=== PATIENT | female | born 1950 | race American Indian/Alaskan Native ===

== ENCOUNTER 2021-10-01 10:16 | Emergency (ER) | payer SELFPAY ==
--- NOTE | 2021-10-01 13:05 | Emergency Department Report ---
ED General Adult HPI - General Chief complaint: Dyspnea/Respdistress Stated complaint: COUGH Time Seen by Provider: 10/01/21 12:58 Source: patient Mode of arrival: Ambulatory Limitations: No Limitations - History of Present Illness Initial comments: Patient is 70 years old female with history of hypertension. Patient presented to the ER complaining of cough for 2-1/2month. Patient stated that cough is productive with frothy sputum. She denied any chest pain or shortness of breath. Patient denied any orthopnea. Patient stated that she was treated with amoxicillin and Mucinex with no improvement. Patient denied any fever or chills. No nausea or vomiting. - Related Data Allergies Allergy/AdvReac Type Severity Reaction Status Date / Time No Known Allergies Allergy Unverified 10/01/21 10:30 ED Review of Systems ROS: Stated complaint: COUGH Other details as noted in HPI Comment: All other systems reviewed and negative Constitutional: denies: chills, fever Respiratory: cough. denies: orthopnea, shortness of breath, SOB with exertion, SOB at rest, stridor, wheezing Cardiovascular: denies: chest pain, palpitations, dyspnea on exertion, orthopnea, paroxysmal nocturnal dyspnea Gastrointestinal: denies: abdominal pain, nausea, vomiting, diarrhea, constipation, hematemesis, melena, hematochezia Genitourinary: denies: urgency Musculoskeletal: denies: back pain Neurological: denies: headache, weakness, numbness, paresthesias, confusion ED Physical Exam - General Limitations: No Limitations General appearance: alert, in no apparent distress - Head Head exam: Present: atraumatic, normocephalic, normal inspection - Eye Eye exam: Present: normal appearance, PERRL - ENT ENT exam: Present: normal exam, normal orophraynx, mucous membranes moist - Neck Neck exam: Present: normal inspection, full ROM. Absent: tenderness, meningismus - Respiratory Respiratory exam: Present: normal lung sounds bilaterally - Cardiovascular Cardiovascular Exam: Present: regular rate, normal rhythm, normal heart sounds - GI/Abdominal GI/Abdominal exam: Present: soft, normal bowel sounds. Absent: distended, tenderness, guarding, rebound, rigid, organomegaly, mass, bruit, pulsatile mass, hernia - Extremities Exam Extremities exam: Present: normal inspection, full ROM, normal capillary refill. Absent: tenderness - Back Exam Back exam: Present: normal inspection, full ROM. Absent: CVA tenderness (R), CVA tenderness (L) - Neurological Exam Neurological exam: Present: alert, oriented X3, CN II-XII intact - Psychiatric Psychiatric exam: Present: normal mood - Skin Skin exam: Present: warm, intact, normal color ED Course Vital Signs 10/01/21 10:27 Temperature 98.8 F Pulse Rate 102 H Respiratory 18 Rate Blood Pressure 166/71 [Right] O2 Sat by Pulse 100 Oximetry ED Medical Decision Making - Lab Data Result diagrams: 10/01/21 14:24 - Radiology Data Radiology results: report reviewed - Medical Decision Making Patient is 70 years old female with history of hypertension. Patient presented to the ER complaining of cough for 2-1/2month. Patient stated that cough is productive with frothy sputum. She denied any chest pain or shortness of breath. Patient denied any orthopnea. Patient stated that she was treated with amoxicillin and Mucinex with no improvement. Patient denied any fever or chills. No nausea or vomiting. Critical care attestation.: If time is entered above; I have spent that time in minutes in the direct care of this critically ill patient, excluding procedure time. ED Disposition Clinical Impression: Cough Disposition: 01 HOME / SELF CARE / HOMELESS Is pt being admited?: No Condition: Stable Instructions: Cough, Adult, [id number] Referrals: PRIMARY CARE, [Primary Care Provider] - 3-5 Days
--- NOTE | 2021-10-01 13:23 | XRay Report ---
CHEST 2 VIEWS INDICATION / CLINICAL INFORMATION: cough. COMPARISON: None available. FINDINGS: SUPPORT DEVICES: None. HEART / MEDIASTINUM: No significant abnormality. LUNGS / PLEURA: No significant pulmonary or pleural abnormality. No pneumothorax. ADDITIONAL FINDINGS: No significant additional findings. IMPRESSION: 1. No acute findings. Signer Name: Sanchez Perera MD Signed: 10/01/2021 1:18 PM Workstation Name: [id number]
[2021-10-01 14:45] LABS: Basophils # (Auto) 0.1 K/mm3 (0.0-0.1); Basophils % (Auto) 0.9 % (0.0-1.8); Eosinophils % (Auto) 0.2 % (0.0-4.3); Hematocrit 33.4 % (30.3-42.9); Hemoglobin 10.9 gm/dl (10.1-14.3); Lymphocytes # (Auto) 1.7 K/mm3 (1.2-5.4); Lymphocytes % (Auto) 25.7 % (13.4-35.0); Mean Corpuscular HGB Conc 33 % (30-34); Mean Corpuscular Volume 88 fl (79-97); Monocytes # (Auto) 0.6 K/mm3 (0.0-0.8); Monocytes % (Auto) 9.3 % (0.0-7.3); Platelet Count 286 K/mm3 (140-440); Red Cell Distribution Width 12.7 % (13.2-15.2)
[2021-10-01 15:07] LABS: Albumin 4.3 g/dL (3.9-5); Calcium 9.5 mg/dL (8.4-10.2)
[2021-10-01 16:22] VITALS: BP 173/76
== END 2021-10-01 16:22 | disposition home or self-care (01) ==
LOC: ED 10:16
DX: R05.9 Cough, unspecified (principal)
CPT/HCPCS: 36415; 71046; 80053; 83880; 85025; 99283